=== PATIENT | male | born 1950 | race Caucasian/White ===

== ENCOUNTER 2020-10-25 02:14 | Emergency (ER) | payer MEDICARE, MEDICAID ==
[~2020-10-25] VITALS: Ht 167.6 cm; Wt 73.0 kg
[2020-10-25 04:30] VITALS: BP 132/71
== END 2020-10-25 04:30 | disposition home or self-care (01) ==
LOC: ER 02:14
DX: T83.098A Other mechanical complication of other urinary catheter, initial encounter (principal); R33.9 Retention of urine, unspecified; Y92.89 Other specified places as the place of occurrence of the external cause
CPT/HCPCS: 51702; 99284